=== PATIENT | female | born 1940 | race Caucasian/White ===

== ENCOUNTER → 2016-12-16 | Outpatient (CLI) | payer MEDICARE, BC ==
[~2016-12-16] MED LIST: ALLEGRA PO; EFFEXOR XR PO; HYDROCODONE-APA1 T30 PO; PRILOSEC PO; TOPROL XL PO
--- NOTE | ~2016-12-16 | MY11 ---
[facility] A Service of [facility] RADIOLOGY TEXT RESULTS PATIENT: SADIQ BROWNLEE LOCATION: [facility] : 41 UNIT #: [id number] AGE: [address]: Connor Kc MD SEX: F ORDER DR: [id number] [facility] [address] [place], [place] [address] [id number] O MR#: [id number] Acc #: [id number] NAME: SADIQ BROWNLEE : 1940 SEX: F STUDY DATE/TIME: 12/16/2016 12:05 UNIT: [facility] ROOM: STUDY DESCRIPTION: MY Mammogram Screening Dig Uday Attending Physician: Connor Kc M.D. Referring Physician: Connor Kc M.D. Ordering Physician: Connor Kc M.D. Primary Care Physician: Connor Kc M.D. MEDICAL IMAGING REPORT This report is preliminary unless electronic signature is present EXAM Digital screening mammogram 12/16/2016 HISTORY 76-year-old woman no risk elevation. Prior left breast biopsy. Annual screen. COMPARISON 03/04/2006 01/07/2014 04/06/2013. FINDINGS The digital imaging of each breast was completed utilizing screening protocol. Review includes FDA-approved CAD device. Skin marker placed on the left breast at the previous biopsy site. Breast parenchyma is predominantly fatty replaced. There is no breast mass. There are no interval occurring microcalcifications and no suspicious architectural deformity. IMPRESSION Negative mammogram. Annual screening recommended. Patients over the age of 40 are entered into a reminder system with target due date for the next mammogram. A result letter will also be sent to the patient. BIRADS: 1, negative. Dictated by... Williams Anderson M.D. THIS IS AN ELECTRONICALLY VERIFIED REPORT Williams Anderson M.D. at 12/16/2016 3:06 PM [facility] A Service of [facility] RADIOLOGY TEXT RESULTS PATIENT: SADIQ BROWNLEE LOCATION: [facility] : 41 UNIT #: [id number] AGE: [address]: Connor Kc MD SEX: F ORDER DR: KIRSTEN/rnr TD: 12/16/2016 14:10 JOB #: [id number] MEDICAL IMAGING REPORT Page 1 of 1 COPY
--- NOTE | ~2016-12-16 | BD1 ---
[facility] A Service of [facility] RADIOLOGY TEXT RESULTS PATIENT: SADIQ BROWNLEE LOCATION: [facility] : 41 UNIT #: [id number] AGE: [address]: Connor Kc MD SEX: F ORDER DR: [id number] [facility] [address] [place], [place] [address] [id number] O MR#: [id number] Acc #: [id number] NAME: SADIQ BROWNLEE : 1940 SEX: F STUDY DATE/TIME: 12/16/2016 11:56 UNIT: [facility] ROOM: STUDY DESCRIPTION: BD Dexa Bone Dens 1+ Site Attending Physician: Connor Kc M.D. Referring Physician: Connor Kc M.D. Ordering Physician: Connor Kc M.D. Primary Care Physician: Cnonor Kc M.D. MEDICAL IMAGING REPORT This report is preliminary unless electronic signature is present EXAM DXA scan, 12/16/2016 HISTORY Status post menopause with no hormone replacement therapy. Osteopenia. Arthritis. Fracture of right ankle in last 10 years. Smoking history. Hypertension with blood pressure medication. FINDINGS Bone mineral density in the lumbar spine from L1-L4 was 0.814 g/cm2 which is 2.1 standard deviations below the mean when compared to the young adult reference population which is characteristic of osteopenia. This is 0.3 standard deviations above the mean when compared to the age-matched population. Bone mineral density in the left femoral neck was 0.602 g/cm2 which is 2.2 standard deviations below the mean when compared to the young adult reference population which is characteristic of osteopenia. This is 0.1 standard deviations below the mean when compared to the age-matched population. IMPRESSION Bone mineral density in the lumbar spine and left hip characteristic of osteopenia. Dictated by... Mark Anthony Kay M.D. THIS IS AN ELECTRONICALLY VERIFIED REPORT Mark Anthony Kay M.D. at 12/17/2016 8:12 AM LAMIN/kadi TD: 12/16/2016 14:11 [facility] A Service of [facility] RADIOLOGY TEXT RESULTS PATIENT: SADIQ BROWNLEE [id number] 42 UNIT #: [id number] AGE: [address]: Connor Kc MD SEX: F ORDER DR: JOB #: [id number] MEDICAL IMAGING REPORT Page 1 of 1 COPY
== END | disposition home or self-care (01) ==
LOC: CWCC 11:34
DX: Z13.820 Encounter for screening for osteoporosis (principal); Z12.31 Encounter for screening mammogram for malignant neoplasm of breast; Z78.0 Asymptomatic menopausal state; M85.89 Other specified disorders of bone density and structure, multiple sites; Z98.890 Other specified postprocedural states
CPT/HCPCS: 77080; G0202